=== PATIENT | female | born 1995 | race Caucasian/White ===

== ENCOUNTER 2024-05-30 08:12 | Outpatient (CLI) | payer SELFPAY ==
--- NOTE | ~2024-05-30 | US_ITS ---
EXAMINATION: US OB /maternal detail DATE: 05/30/2024 9:34 [employer] INDICATION: Anatomy scan TECHNIQUE: Real-time transabdominal obstetric ultrasound. FINDINGS: 1 para 0 There is a single intrauterine gestation in vertex presentation. The placenta is posterior, with its tip located 2.1 cm from the cervical os. The cervix measures 3.2 cm in length. cardiac activity and movement is noted with a heart rate of 148 beats per minute. Anatomic parameters are as follows The bladder is visualized and is unremarkable. A three-vessel cord is present. Cord insertion is not clearly demonstrated to be on the midline on the submitted images for which f ollow-up is needed. Bilateral kidneys are present without hydronephrosis. The diaphragm is poorly visualized for which follow-up examination is needed. The cervical, thoracic and lumbar spines are covered in their entirety. choroid plexi are visualized, and unremarkable. Lateral ventricles are visualized. The falx is visualized. The cerebellum is visualized measuring 20mm, and is sonographically unremarkable. The cisterna magna measures 4.7mm in anterior to posterior dimension (normal measurement is 2 to 10 m m). The nuchal fold measures 5.5mm (greater than 6 mm is considered abnormal). Cine of the four-chamber heart is visualized and is anatomic. Both the right and left ventricular outflow tracts are identified on cine view and are unremarkable. Limited views of the arms, hands, legs and feet were performed and appear grossly unremarkable. Limited evaluation of the upper lip and nose to confirm their continuity is appreciated on the subm itted images for which follow-up examination is needed. The following biometric data were obtained: Biparietal diameter (BPD): 5 cm; head circumference (HC): 18.4 cm; abdominal circumference (AC): 16.5 cm; femur length (FL): 3.6 cm. These measurements are concordant. Estimated weight is 415.9 g +/- 62.4 g, which correlates with the 89th percentile when is used as estimated date of delivery. As single measurements, these parameters are each equal to the following estimated gestational ages: BPD: 21 weeks 1 day. HC: 20 weeks 5 days. AC: 21 weeks 4 days. FL: 21 weeks 2 days. estimated gestational age based solely on measurements from this exam is 21 weeks 1 day +/- 1 w eeks 3 days. IMPRESSION: Single intrauterine gestation with an approximate gestational age of 21 weeks and 1 day. Estimated du e date by ultrasound is 10/09/2024. Limited evaluation of the upper lip and nose to confirm their continuity is appreciated on the submit sammie images for which follow-up examination is needed. The diaphragm is poorly visualized for which follow-up examination is needed. Cord insertion is not clearly demonstrated to be on the midline on the submitted images for which fol low-up is needed. Reviewed, dictated and finalized at location A. [employer] IMPRESSION: Single intrauterine gestation with an approximate gestational age of 21 weeks a nd 1 day. Estimated due date by ultrasound is 10/09/2024. Limited evaluation of the upper lip and nose to confirm their continuity is puma reciated on the submitted images for which follow-up examination is needed. The diaphragm is poorly visualized for which follow-up examination is nee ded. Cord insertion is not clearly demonstrated to be on the midline on the submitte d images for which follow-up is needed.
== END 2024-05-30 08:13 | disposition home or self-care (01) ==
PROVIDERS: PCP Obstetrics & Gynecology; Visit Provider Obstetrics & Gynecology
DX: Z36.9 Encounter for antenatal screening, unspecified (principal)
CPT/HCPCS: 76805

== ENCOUNTER 2024-06-25 12:50 | Outpatient (CLI) | payer SELFPAY ==
--- NOTE | ~2024-06-25 | US_ITS ---
EXAM EXAMINATION: US OB limited DATE: 06/25/2024 16:17 CDT INDICATION: Follow-up anatomy scan COMPARISON: 04/26/2024 and 03/26/2024 TECHNIQUE: Real-time transabdominal obstetric ultrasound. FINDINGS: There is a single intrauterine gestation in vertex presentation. The placenta is posterior with the tip of the placenta measuring 5.9 cm from the cervix. The cervix measures 3.8 cm in length on the submitted images. cardiac activity and movement is noted with a heart rate of 143 beats per minute. Both the anterior and posterior margins of the diaphragm are continuous. The continuity of the upper lip and nose are confirmed on the cine images. Cord insertion onto the abdomen is delineated, however no images of the site of insertion to confirm positioning as midline are submitted. Only a single image designated cord insert is submitted. IMPRESSION: Single intrauterine gestation in vertex presentation with cardiac activity identified. The cord is identified, however images of cord insertion on the midline of the abdomen are not includ ed, for which follow-up examination is recommended. The diaphragm, upper lip and nose are anatomic and within normal limits. Reviewed, dictated and finalized at location A. IMPRESSION: Single intrauterine gestation in vertex presentation with cardiac activit y identified. The cord is identified, however images of cord insertion on the midline of the abdomen are not included, for which follow-up examination is recommended. The diaphragm, upper lip and nose are anatomic and within normal limits.
== END 2024-06-25 12:51 | disposition home or self-care (01) ==
PROVIDERS: PCP Obstetrics & Gynecology; Visit Provider Obstetrics & Gynecology
DX: Z36.9 Encounter for antenatal screening, unspecified (principal); Z3A.00 Weeks of gestation of pregnancy not specified
CPT/HCPCS: 76815